=== PATIENT | male | born 1965 | race Hispanic/Latino ===

== ENCOUNTER 2021-09-28 18:06 | Emergency (ER) | payer SELFPAY ==
[2021-09-29 07:08] LABS: Bilirubin,Urine NEG (Negative); Blood,Urine NEG (Negative); Calcium Oxalate Crystals,Urine 2+; Color,Urine Yellow (Yellow); Mucus,Urine 3+ /HPF; Protein,Urine <15 mg/dL mg/dL (Negative)
[2021-09-29 07:12] LABS: Amphetamine Screen,Urine PRESUMPTIVE NEGATIVE; Benzodiazepines Screen,Urine PRESUMPTIVE NEGATIVE; Cannabinoid Screen,Urine PRESUMPTIVE NEGATIVE; Cocaine Screen,Urine PRESUMPTIVE POSITIVE; Methadone Screen,Urine PRESUMPTIVE NEGATIVE; Opiate Screen,Urine PRESUMPTIVE NEGATIVE
--- NOTE | 2021-09-29 08:03 | Emergency Department Report ---
ED General Adult HPI - General Chief complaint: Psych Stated complaint: SUICIDAL/PELVIC/FOOT PAIN Time Seen by Provider: 09/29/21 06:17 Source: patient Mode of arrival: Ambulatory Limitations: No Limitations - History of Present Illness Initial comments: patient presents with complaints of having suicidal thoughts. Denies visual and auditory hallucinations. Reports depressed mood and anhedonia since 05/2021, when he fell from a tree (25 feet high) and sustained several injuries that required surgeries and rendered him invalid and unable to work. States he is not used to this kind of life and feels like ending it. - Related Data Previous Rx's Medication Instructions Recorded Last Taken Type traMADoL [Ultram] 50 mg PO Q6HR PRN #20 tablet 01/28/15 Unknown Rx Allergies Allergy/AdvReac Type Severity Reaction Status Date / Time acetaminophen [From Tylenol] Allergy Swelling Verified 01/28/15 01:15 aspirin Allergy Swelling Verified 01/28/15 01:15 ED Review of Systems ROS: Stated complaint: SUICIDAL/PELVIC/FOOT PAIN Other details as noted in HPI Comment: All other systems reviewed and negative Constitutional: denies: chills, fever ED Past Medical Hx - Past Medical History Previous Medical History?: Yes Hx Psychiatric Treatment: Yes (DEPRESSION,PTSD) Additional medical history: HEART MURMUR - Surgical History Past Surgical History?: Yes Additional Surgical History: left leg surgery - Social History Smoking Status: Current Every Day Smoker Substance Use Type: None - Medications Home Medications: Home Medications Medication Instructions Recorded Confirmed Last Taken Type traMADoL [Ultram] 50 mg PO Q6HR PRN #20 tablet 01/28/15 Unknown Rx ED Physical Exam - General Limitations: No Limitations General appearance: alert, in no apparent distress - Head Head exam: Present: atraumatic, normocephalic - Eye Eye exam: Present: PERRL, EOMI - ENT ENT exam: Present: mucous membranes moist, other (airway patent) - Neck Neck exam: Present: other (supple; no JVD) - Respiratory Respiratory exam: Present: other (good air entry, nml I:E, CTAB, no use of ALDAIR) - Cardiovascular Cardiovascular Exam: Present: regular rate. Absent: rubs, gallop - GI/Abdominal GI/Abdominal exam: Present: soft, normal bowel sounds. Absent: distended, tenderness - Extremities Exam Extremities exam: Present: other (walker boot in RLE; otherwise, full ROM wihtout tenderness or deformity in other extremities) - Back Exam Back exam: Present: full ROM. Absent: tenderness - Neurological Exam Neurological exam: Present: alert, oriented X3, CN II-XII intact. Absent: motor sensory deficit - Psychiatric Psychiatric exam: Present: flat affect, suicidal ideation, other (no delusions or hallucinations). Absent: homicidal ideation - Skin Skin exam: Present: warm, normal color ED Course Vital Signs 09/28/21 09/29/21 09/29/21 19:47 09:00 12:16 Temperature 97.9 F Pulse Rate 80 80 Respiratory 18 16 Rate Blood Pressure 124/78 131/87 [Left] O2 Sat by Pulse 100 100 99 Oximetry ED Medical Decision Making - Lab Data Result diagrams: 09/29/21 07:55 09/29/21 07:55 Laboratory Tests 09/29/21 09/29/21 09/29/21 07:55 07:55 07:55 WBC 4.1 L RBC 4.33 Hgb 12.0 Hct 37.4 MCV 86 MCH 28 MCHC 32 RDW 15.2 Plt Count 203 Lymph % (Auto) 46.6 H [place] % (Auto) 6.6 Eos % (Auto) 3.5 Baso % (Auto) 1.2 Lymph # (Auto) 1.9 Cata[place] # (Auto) 0.3 Eos # (Auto) 0.1 Baso # (Auto) 0.1 Seg Neutrophils % 42.1 Seg Neutrophils # 1.7 L Sodium 142 Potassium 4.2 Chloride 104.4 Carbon Dioxide 28 Anion Gap 14 BUN 15 Creatinine 0.6 L Estimated GFR > 60 BUN/Creatinine Ratio 25 Glucose 101 H Calcium 9.6 Total Bilirubin 0.50 AST 24 ALT 30 Alkaline Phosphatase 110 Total Protein 7.3 Albumin 5.0 Albumin/Globulin Ratio 2.2 Urine Color Urine Turbidity Urine pH Ur Specific [place] Urine Protein Urine Glucose (UA) Urine Ketones Urine Blood Urine Nitrite Urine Bilirubin Urine Urobilinogen Ur Leukocyte Esterase Urine WBC (Auto) Urine RBC (Auto) U Epithel Cells (Auto) Calcium Oxalate Crystal Urine Mucus Salicylates < 0.3 L Urine Opiates Screen Urine Methadone Screen Acetaminophen Ur Barbiturates Screen Ur Phencyclidine Scrn Ur Amphetamines Screen U Benzodiazepines Scrn Urine Cocaine Screen U Marijuana (THC) Screen Drugs of Abuse Note Plasma/Serum Alcohol 09/29/21 09/29/21 09/29/21 07:55 07:55 Unknown WBC RBC Hgb Hct MCV MCH MCHC RDW Plt Count Lymph % (Auto) [place] % (Auto) Eos % (Auto) Baso % (Auto) Lymph # (Auto) [place] # (Auto) Eos # (Auto) Baso # (Auto) Seg Neutrophils % Seg Neutrophils # Sodium Potassium Chloride Carbon Dioxide Anion Gap BUN Creatinine Estimated GFR BUN/Creatinine Ratio Glucose Calcium Total Bilirubin AST ALT Alkaline Phosphatase Total Protein Albumin Albumin/Globulin Ratio Urine Color Yellow Urine Turbidity Clear Urine pH 5.0 Ur Specific [place] 1.029 Urine Protein <15 mg/dl Urine Glucose (UA) Neg Urine Ketones Neg Urine Blood Neg Urine Nitrite Neg Urine Bilirubin Neg Urine Urobilinogen 2.0 Ur Leukocyte Esterase Neg Urine WBC (Auto) 1.0 Urine RBC (Auto) 2.0 U Epithel Cells (Auto) < 1.0 Calcium Oxalate Crystal 2+ Urine Mucus 3+ Salicylates Urine Opiates Screen Urine Methadone Screen Acetaminophen 5.0 L Ur Barbiturates Screen Ur Phencyclidine Scrn Ur Amphetamines Screen U Benzodiazepines Scrn Urine Cocaine Screen U Marijuana (THC) Screen Drugs of Abuse Note Plasma/Serum Alcohol < 0.01 09/29/21 Unknown WBC RBC Hgb Hct MCV MCH MCHC RDW Plt Count Lymph % (Auto) [place] % (Auto) Eos % (Auto) Baso % (Auto) Lymph # (Auto) [place] # (Auto) Eos # (Auto) Baso # (Auto) Seg Neutrophils % Seg Neutrophils # Sodium Potassium Chloride Carbon Dioxide Anion Gap BUN Creatinine Estimated GFR BUN/Creatinine Ratio Glucose Calcium Total Bilirubin AST ALT Alkaline Phosphatase Total Protein Albumin Albumin/Globulin Ratio Urine Color Urine Turbidity Urine pH Ur Specific [place] Urine Protein Urine Glucose (UA) Urine Ketones Urine Blood Urine Nitrite Urine Bilirubin Urine Urobilinogen Ur Leukocyte Esterase Urine WBC (Auto) Urine RBC (Auto) U Epithel Cells (Auto) Calcium Oxalate Crystal Urine Mucus Salicylates Urine Opiates Screen Presumptive negative Urine Methadone Screen Presumptive negative Acetaminophen Ur Barbiturates Screen Presumptive negative Ur Phencyclidine Scrn Presumptive negative Ur Amphetamines Screen Presumptive negative U Benzodiazepines Scrn Presumptive negative Urine Cocaine Screen Presumptive positive U Marijuana (THC) Screen Presumptive negative Drugs of Abuse Note Disclamer Plasma/Serum Alcohol - Medical Decision Making Diff dz: likely 2/2 adjustment disorder with depressed mood. Suicidal. Patient medically cleared. Mental health consulted Critical care attestation.: If time is entered above; I have spent that time in minutes in the direct care of this critically ill patient, excluding procedure time. ED Disposition Clinical Impression: Adjustment disorder with depressed mood, Suicidal thoughts, Drug abuse Disposition: 30 STILL A PATIENT Is pt being admited?: No Does the pt Need Aspirin: No Condition: Stable Referrals: PRIMARY CARE,MD [Primary Care Provider] - 3-5 Days Time of Disposition: 15:00 (Patient care was transferred to Dr. Sin (oncoming ER doc). Sign out was given by me to him.)
[2021-09-29 08:13] LABS: Basophils # (Auto) 0.1 K/mm3 (0.0-0.1); Basophils % (Auto) 1.2 % (0.0-1.8); Eosinophils # (Auto) 0.1 K/mm3 (0.0-0.4); Eosinophils % (Auto) 3.5 % (0.0-4.3); Hematocrit 37.4 % (35.5-45.6); Lymphocytes # (Auto) 1.9 K/mm3 (1.2-5.4); Lymphocytes % (Auto) 46.6 % (13.4-35.0); Mean Corpuscular HGB Conc 32 % (32-34); Mean Corpuscular Volume 86 fl (84-94); Monocytes # (Auto) 0.3 K/mm3 (0.0-0.8); Monocytes % (Auto) 6.6 % (0.0-7.3); Platelet Count 203 K/mm3 (140-440); Red Blood Count 4.33 M/mm3 (3.65-5.03); Red Cell Distribution Width 15.2 % (13.2-15.2)
[2021-09-29 08:30] LABS: Alanine Aminotransferase 30 units/L (7-56); Blood Urea Nitrogen 15 mg/dL (9-20); Calcium 9.6 mg/dL (8.4-10.2); Hemolysis Index 18
[2021-09-29 08:32] LABS: BUN/Creatinine Ratio 25
--- NOTE | 2021-09-29 11:24 | Consultation ---
History of Present Illness - Reason for Consult Consult date: 09/29/21 Reason for consult: SI, drug use - History of Present Psychiatric Illness HPI: patient presents with complaints of having suicidal thoughts. Denies visual and auditory hallucinations. Reports depressed mood and anhedonia since 05/2021, when he fell from a tree (25 feet high) and sustained several injuries that required surgeries and rendered him invalid and unable to work. States he is not used to this kind of life and feels like ending it. The patient was seen today. He endorses suicidal thoughts and feeling helpless and hopeless. He says he feel from a tree while at work and injured himself badly. The patient utilizes crutches. He says since then, he lost his job and his home. He says he became depressed and started doing cocaine to self medicate for pain and deal with life. The patient says he doesn't sleep well. The patient says the cocaine did nothing for his pain nor his problems. He says he thinks is the only way out. He says this made him start thinking about suicide. The patient says he was diagnosed with PTSD and schizophrenia in the past but hasn't been on meds in about 10 years. He says prior to all of this he was fine. PSYCH HISTORY Diagnoses: Schizophrenia Suicide attempts or Self-harm behavior: No Prior psychiatric hospitalizations: Denies Substance Abuse history: Cocaine Previous psychiatric medications tried: Not in 10 years Outpatient treatment: Denies PAST MEDICAL HISTORY: Family Psychiatric History: None reported or documented SOCIAL HISTORY Marital Status: Single Living Arrangements: Homeless Employment Status: Unemployed Access to guns/weapons: Denies Education: high school History of Abuse: Denies Legal History: none MENTAL STATUS EXAMINATION General Appearance and Behavior: Age appropriate, good hygiene, wearing appropriate clothes, calm, cooperative, polite Cooperation: Participating Psychomotor Behavior: unremarkable and within normal limits Mood: depressed Affect and affective range: congruent with mood Thought Process: goal directed Thought Content: SI, helpless, hopeless Speech: Normal volume, Regular rate and rhythm, Suicidal Ideation: Yes Homicidal Ideation: Denies Hallucinations: Denies Delusions: None elicited Impulse Control: Limited Insight and Judgment: Limited insight and poor judgment, Memory: Normal Attention: attentive Orientation: Alert, oriented Assessment and Plan (1) Major Depressive Disorder (2) Cocaine Use Disorder Treatment Plan 1013 Cymbalta 40mg po daily Doxepin 10mg po qhs Melatonin 5mg po qhs prn insomnia PSYCHOTHERAPY: Supportive psychotherapy provided MEDICAL: Per primary team DELIRIUM PRECAUTIONS: Please re-orient patient frequently, keep lights on during the day, and minimize benzodiazepines and opiates as these medications could worsen patient's confusion. LIFE INSURANCE SPECIALIST: Per medical team DISPOSITION: recommend acute psychiatric inpatient treatment. Will follow. Thank you for the consult. Case staffed with Dr. Meza Medications and Allergies Allergies Allergy/AdvReac Type Severity Reaction Status Date / Time acetaminophen [From Tylenol] Allergy Swelling Verified 01/28/15 01:15 aspirin Allergy Swelling Verified 01/28/15 01:15 Home Medications Medication Instructions Recorded Confirmed Last Taken Type traMADoL [Ultram] 50 mg PO Q6HR PRN #20 tablet 01/28/15 Unknown Rx Mental Status Exam - Vital signs Last Vital Signs Temp 97.9 F 09/28/21 19:47 Pulse 80 09/28/21 19:47 Resp 18 09/28/21 19:47 BP 124/78 09/28/21 19:47 Pulse Ox 100 09/29/21 09:00 Results Result Diagrams: 09/29/21 07:55 09/29/21 07:55 Abnormal lab results 09/29/21 09/29/21 09/29/21 Range/Units 07:55 07:55 07:55 WBC 4.1 L (4.5-11.0) K/mm3 Lymph % (Auto) 46.6 H (13.4-35.0) % Seg Neutrophils # 1.7 L (1.8-7.7) K/mm3 Creatinine 0.6 L (0.8-1.3) mg/dL Glucose 101 H (75-100) mg/dL Salicylates < 0.3 L (2.8-20.0) mg/dL Acetaminophen (10.0-30.0) ug/mL 09/29/21 Range/Units 07:55 WBC (4.5-11.0) K/mm3 Lymph % (Auto) (13.4-35.0) % Seg Neutrophils # (1.8-7.7) K/mm3 Creatinine (0.8-1.3) mg/dL Glucose (75-100) mg/dL Salicylates (2.8-20.0) mg/dL Acetaminophen 5.0 L (10.0-30.0) ug/mL All other labs normal.
[2021-09-29] MEDS ORDERED: DULoxetine 20 MG CAP PO SCH (12:00)
[2021-09-29] MEDS ORDERED: ACETAMINOPHEN 500 MG TAB PO ONE (17:51)
[2021-09-29] MEDS ORDERED: DOXEPIN 10 MG CAP PO SCH (22:00)
[2021-09-29] MEDS ORDERED: MELATONIN 5 MG TAB PO PRN (22:00)
--- NOTE | 2021-09-30 08:49 | Progress Note ---
Subjective - Reason for Consult Consult date: 09/30/21 Reason for consult: depression, SI - Chief Complaint Chief complaint: The patient was seen today. He is cooperative and polite. He says he is very depressed. The patient says he is suicidal, but it's because he is injured and has nowhere to go. The patient says "I can't get over the fact that if I leave here I don't know what's going to happen. I'm fighting not to do anything to myself." The patient says he feels helpless and hopeless. The patient also states he didn't sleep too well. He denies hallucinations. REVIEW OF SYSTEMS Constitutional: Negative for weight loss ENT: Negative for stridor Respiratory: Negative for cough or hemoptysis All other systems reviewed and are negative MENTAL STATUS EXAMINATION General Appearance and Behavior: Age appropriate, good hygiene, wearing appropriate clothes, calm, cooperative, polite Cooperation: Participating Psychomotor Behavior: unremarkable and within normal limits Mood: depressed Affect and affective range: congruent with mood Thought Process: goal directed Thought Content: SI, helpless, hopeless Speech: Normal volume, Regular rate and rhythm, Suicidal Ideation: Yes Homicidal Ideation: Denies Hallucinations: Denies Delusions: None elicited Impulse Control: Limited Insight and Judgment: Limited insight and poor judgment, Memory: Normal Attention: attentive Orientation: Alert, oriented Assessment and Plan (1) Major Depressive Disorder (2) Cocaine Use Disorder Treatment Plan 1013 Increased Cymbalta 60mg po daily Increased Doxepin 25mg po qhs Melatonin 5mg po qhs prn insomnia PSYCHOTHERAPY: Supportive psychotherapy provided MEDICAL: Per primary team DELIRIUM PRECAUTIONS: Please re-orient patient frequently, keep lights on during the day, and minimize benzodiazepines and opiates as these medications could worsen patient's confusion. CREDENTIALING ASSISTANT: Per medical team DISPOSITION: recommend acute psychiatric inpatient treatment. Will follow. Thank you for the consult. Case staffed with Dr. Meza Mental Status Exam - Vital signs Last Vital Signs Temp 97.7 F 09/29/21 18:27 Pulse 15 L 09/29/21 18:27 Resp 16 09/29/21 23:18 BP 107/61 09/29/21 18:27 Pulse Ox 97 09/29/21 23:18
[2021-09-30] MEDS ORDERED: DULoxetine 30 MG CAP PO SCH (10:00)
[2021-09-30] MEDS ORDERED: ACETAMINOPHEN 325 MG TAB PO ONE (10:18)
--- NOTE | 2021-09-30 11:34 | Event Note ---
Date: 09/30/21 Patient still saying that he is suicidal. Viral signs reviewed and unremarkable. Labs reviewed and is unremarkable. Patient recommended for inpatient psychiatric admission pending placement.
[2021-09-30] MEDS ORDERED: ACETAMINOPHEN 325 MG TAB PO PRN (15:02)
[2021-09-30] MEDS ORDERED: DOXEPIN 25 MG CAP PO SCH (22:00)
[2021-09-30 22:31] VITALS: BP 112/72
== END 2021-09-30 22:31 | disposition still patient (30) ==
LOC: ED 18:06 → EEVIPCON 18:06 → ED 09-30 22:31
DX: R45.851 Suicidal ideations (principal); F43.21 Adjustment disorder with depressed mood; F19.10 Other psychoactive substance abuse, uncomplicated; F17.200 Nicotine dependence, unspecified, uncomplicated; Z98.890 Other specified postprocedural states; Z79.899 Other long term (current) drug therapy; Z91.09 Other allergy status, other than to drugs and biological substances; Z20.822 Contact with and (suspected) exposure to COVID-19
CPT/HCPCS: 36415; 80053; 80307; 81001; 85025; 99284; U0003; 80320; G0480

== ENCOUNTER 2021-10-09 23:28 | Emergency (ER) | payer SELFPAY ==
--- NOTE | 2021-10-10 07:45 | Emergency Department Report ---
ED Extremity Problem HPI - General Chief complaint: Extremity Injury, Lower Stated complaint: FOOT PAIN/DEPRESSION Source: patient Mode of arrival: Ambulatory Limitations: No Limitations - History of Present Illness Initial comments: 56-year-old male presents to the ED with right foot pain x3 weeks. She was initially seen at [facility] 3 weeks ago and was diagnosed with a nondisplaced fracture of the fourth metatarsal bone to the right foot. Patient was placed in a right foot boot. Patient was scheduled to follow-up with orthopedic surgery but but was unable to due hospitalization and psych facility. Patient states that he was unaware to follow-up with orthopedic. Patient states pain today is a current 3 out of 10. Patient is able to move extremity without any difficult y. There is no obvious swelling noted .no distracting injury noted .no deformity noted. Patient is alert and oriented x3. No acute distress noted. No ill appearance noted. MD Complaint: joint paint Onset/Timin -: week(s) Location: right History of Same: Yes Radiation: none Severity scale (0 -10): 5 Quality: aching Consistency: intermittent Improves with: nothing Associated Symptoms: denies other symptoms - Related Data Previous Rx's Medication Instructions Recorded Last Taken Type traMADoL [Ultram] 50 mg PO Q6HR PRN #20 tablet 01/28/15 Unknown Rx traMADoL [Ultram] 50 mg PO Q6HR PRN 3 Days #12 tablet 10/10/21 Unknown Rx Allergies Allergy/AdvReac Type Severity Reaction Status Date / Time aspirin Allergy Mild Swelling Verified 09/29/21 17:36 ED Review of Systems ROS: Stated complaint: FOOT PAIN/DEPRESSION Other details as noted in HPI Constitutional: denies: chills, fever Eyes: denies: eye pain, eye discharge, vision change ENT: denies: ear pain, throat pain Respiratory: denies: cough, shortness of breath, wheezing Cardiovascular: denies: chest pain, palpitations Endocrine: no symptoms reported Gastrointestinal: denies: abdominal pain, nausea, diarrhea Genitourinary: denies: urgency, dysuria Musculoskeletal: denies: back pain, joint swelling, arthralgia Skin: denies: rash, lesions Neurological: denies: headache, weakness, paresthesias Psychiatric: denies: anxiety, depression Hematological/Lymphatic: denies: easy bleeding, easy bruising ED Past Medical Hx - Past Medical History Hx Psychiatric Treatment: Yes (DEPRESSION,PTSD) Additional medical history: HEART MURMUR - Surgical History Additional Surgical History: left leg surgery - Social History Smoking Status: Current Every Day Smoker Substance Use Type: None - Medications Home Medications: Home Medications Medication Instructions Recorded Confirmed Last Taken Type traMADoL [Ultram] 50 mg PO Q6HR PRN #20 tablet 01/28/15 Unknown Rx traMADoL [Ultram] 50 mg PO Q6HR PRN 3 Days #12 tablet 10/10/21 Unknown Rx ED Physical Exam - General Limitations: No Limitations General appearance: alert, in no apparent distress - Head Head exam: Present: atraumatic, normocephalic - Eye Eye exam: Present: normal appearance - ENT ENT exam: Present: mucous membranes moist - Neck Neck exam: Present: normal inspection - Respiratory Respiratory exam: Present: normal lung sounds bilaterally. Absent: respiratory distress - Cardiovascular Cardiovascular Exam: Present: regular rate, normal rhythm. Absent: systolic murmur, diastolic murmur, rubs, gallop - GI/Abdominal GI/Abdominal exam: Present: soft, normal bowel sounds - Rectal Rectal exam: Present: deferred - Extremities Exam Extremities exam: Present: normal inspection - Back Exam Back exam: Present: normal inspection - Neurological Exam Neurological exam: Present: alert, oriented X3 - Psychiatric Psychiatric exam: Present: normal affect, normal mood - Skin Skin exam: Present: warm, dry, intact, normal color. Absent: rash ED Course Vital Signs 10/09/21 23:41 Temperature 97.5 F L Pulse Rate 86 Respiratory 18 Rate Blood Pressure 128/92 O2 Sat by Pulse 99 Oximetry ED Medical Decision Making - Medical Decision Making 56-year-old male presents to the ED with right foot pain x3 weeks. She was initially seen at [facility] 3 weeks ago and was diagnosed with a nondisplaced fracture of the fourth metatarsal bone to the right foot. Patient was placed in a right foot boot. Patient was scheduled to follow-up with orthopedic surgery but but was unable to due hospitalization and psych facility. Patient states that he was unaware to follow-up with orthopedic. Patient states pain today is a current 3 out of 10. Patient is able to move extremity without any difficulty. There is no obvious swelling noted .no distracting injury noted .no deformity noted. Patient is alert and oriented x3. No acute distress noted. No ill appearance noted. Physical examination is unremarkable patient denies any numbness tingling no discoloration noted. Patient is to follow-up with [facility] orthopedic surgery has previous schedule. Rechecked the patient is resting quietly quietly and comfortable and feeling better. I discussed the results of diagnostic study, my clinical impression and the plan for further treatment with the patient. Patient agrees with plan and discharge at this present time. All question addressed. I have given the patient instruction regarding a diagnosis ,expectation ,follow- up and return precaution. I explained to the patient that emergent condition may arise and to return to the ED for new worsen and any new persisting condition. I have explained the importance of following up with the primary care physician or referral physician listed below has instructed. The patient verbalized understanding of discharge instruction. Critical care attestation.: If time is entered above; I have spent that time in minutes in the direct care of this critically ill patient, excluding procedure time. ED Disposition Clinical Impression: Foot fracture, right Qualifiers: Encounter type: sequela Fracture type: closed Qualified Code(s): S92.901S - Unspecified fracture of right foot, sequela Disposition: 01 HOME / SELF CARE / HOMELESS Is pt being admited?: No Does the pt Need Aspirin: No Condition: Stable Instructions: Cast or Splint Care, Adult, [id number] Additional Instructions: Keep boot in place Up appointment with specialty orthopedic surgery at [facility] Prescriptions: traMADoL [Ultram] 50 mg PO Q6HR PRN 3 Days #12 tablet PRN Reason: Pain Referrals: NISHI SCHUSTER MD [Staff Physician] - 3-5 Days Time of Disposition: 07:48
[2021-10-10 08:05] VITALS: BP 128/82
== END 2021-10-10 08:03 | disposition home or self-care (01) ==
LOC: ED 23:28
DX: S92.901A Unspecified fracture of right foot, initial encounter for closed fracture (principal); Z98.890 Other specified postprocedural states; Z79.899 Other long term (current) drug therapy; Z91.09 Other allergy status, other than to drugs and biological substances; F17.200 Nicotine dependence, unspecified, uncomplicated; X58.XXXA Exposure to other specified factors, initial encounter; Y93.89 Activity, other specified; Y92.89 Other specified places as the place of occurrence of the external cause; Y99.8 Other external cause status
CPT/HCPCS: 99282